=== PATIENT | male | born 1970 | race Two or more races ===

== ENCOUNTER 2024-12-03 13:12 | Emergency (ER) | payer SELFPAY ==
[~2024-12-03] VITALS: Ht 170.2 cm; Wt 72.6 kg
[2024-12-03] MEDS ORDERED: LIDOCAINE HCL/MPF 1% 30 ML VIAL IJ ONE (13:51)
[2024-12-03] MEDS ORDERED: KETOROLAC TROMETHAMINE INJ 30 MG/ML VIAL ONE (13:51)
[2024-12-03] MEDS ORDERED: TDAP [DIPH/PERTUSSIS/TET] 0.5 ML VIAL IM ONE (13:52)
[2024-12-03] MEDS ORDERED: ACETAMINOPHEN ES 500 MG TABLET ONE (13:52)
[2024-12-03] MEDS: ACETAMINOPHEN ES 500 MG TABLET PO ONE (14:01)
[2024-12-03] MEDS: KETOROLAC TROMETHAMINE INJ 30 MG/ML VIAL IM ONE (14:02)
[2024-12-03] MEDS: TDAP [DIPH/PERTUSSIS/TET] 0.5 ML VIAL IM ONE (14:04)
[2024-12-03] MEDS: LIDOCAINE HCL/PF 1% 30 ML VIAL TP ONE (14:07)
[2024-12-03] MEDS: BACI/NEOM/POLY B OINT PKT 1 UDPKT PACKET TP ONE (15:00)
[2024-12-03] MEDS ORDERED: ACET-2030 PO (15:19)
[2024-12-03] MEDS ORDERED: IBUP-1955 PO (15:19)
[2024-12-03] MEDS ORDERED: CEPH-570 PO (15:19)
[2024-12-03 16:18] VITALS: BP 123/76; TEMP 97.6; O2SAT 99
== END 2024-12-03 15:50 | disposition home or self-care (01) ==
LOC: ER 13:18
DX: S61.512A Laceration without foreign body of left wrist, initial encounter (principal); W27.0XXA Contact with workbench tool, initial encounter; Y93.89 Activity, other specified; Y92.89 Other specified places as the place of occurrence of the external cause; Y99.8 Other external cause status
CPT/HCPCS: 12002; 73110; 90471; 90715; 96372; 99284; J1885; J3490